=== PATIENT | female | born 2000 | race Caucasian/White ===

== ENCOUNTER 2019-06-11 10:39 | Emergency (ER) | payer SELFPAY ==
[~2019-06-11] VITALS: Ht 157.5 cm; Wt 50.0 kg
[2019-06-11 11:00] VITALS: BP 113/77; TEMP 98.9
[2019-06-11] MEDS ORDERED: ZITHROMAX Z PA250 MG PO (13:05)
[2019-06-11 13:25] VITALS: PULSE 86
[2019-06-11 22:35] LABS: COLLECTION METHOD CLEAN CATCH
[2019-06-11 22:51] LABS: MUCOUS Present /lpf; PH 7 (5-8); URINE APPEARANCE Hazy; URINE BACTERIA Rare /hpf; URINE BILIRUBIN Negative (NEGATIVE); URINE BLOOD 1+ (NEGATIVE); URINE COLOR Yellow; URINE GLUCOSE Negative (NEGATIVE); URINE KETONE Negative (NEGATIVE); URINE LEUKOCYTE ESTERASE Trace (NEGATIVE); URINE NITRATE Positive (NEGATIVE); URINE PROTEIN(semi-quant) Negative (NEGATIVE); URINE RBC 0-2 /hpf; URINE UROBILINOGEN Negative (NEGATIVE)
[2019-06-11] MEDS ORDERED: OMNICEF 300MG300 MG PO (23:07)
== END 2019-06-11 13:30 | disposition home or self-care (01) ==
LOC: COL.ER 10:39
PROVIDERS: Emergency Medicine
DX: J20.9 Acute bronchitis, unspecified (principal); R09.1 Pleurisy